=== PATIENT | female | born 1945 | race Caucasian/White ===

== ENCOUNTER 2021-11-09 12:35 | Emergency (ER) | payer MEDICARE, OTHER ==
[~2021-11-09] VITALS: Ht 167.6 cm; Wt 89.5 kg
[2021-11-09 13:04] VITALS: BP 155/80
[2021-11-09] MEDS ORDERED: LIDO:MAALOX 1:1 20 ML SINGLE DOSE. PO ONE (13:15)
--- NOTE | 2021-11-09 14:23 | PHYS DOC ---
Past History Past Surgical History: Hysterectomy, Knee Replacement General Adult EDM: Chief Complaint: COUGH HPI: HPI: Patient is a [age] year old [sex] who presents with [] Review of Systems: Review of Systems: Constitutional: Denies fever or chills Eyes: Denies change in visual acuity HENT: Denies nasal congestion or sore throat Respiratory: Denies cough or shortness of breath Cardiovascular: Denies chest pain or edema GI: Denies abdominal pain, nausea, vomiting, bloody stools or diarrhea : Denies dysuria Musculoskeletal: Denies back pain or joint pain Integument: Denies rash Neurologic: Denies headache, focal weakness or sensory changes Endocrine: Denies polyuria or polydipsia Lymphatic: Denies swollen glands Psychiatric: Denies depression or anxiety Current Medications: Current Meds: Current Medications Medications (Trade) Dose Ordered Sig/Bg Start Time Stop Time Status Last Admin Dose Admin Multi-Ingredient Mouthwash/Gargle (Gi Cocktail) 20 ml 1X ONCE 11/09/21 13:15 11/09/21 13:16 DC 11/09/21 13:20 20 ML Allergies: Allergies: Allergies Coded Allergies Type Severity Reaction Last Updated Verified No Known Drug Allergies 11/09/21 No Physical Exam: PE: Constitutional: Well developed, well nourished, no acute distress, non-toxic appearance. [] HENT: Normocephalic, atraumatic, bilateral external ears normal, oropharynx moist, no oral exudates, nose normal. [] Eyes: PERRLA, EOMI, conjunctiva normal, no discharge. [] Neck: Normal range of motion, no tenderness, supple, no stridor. [] Cardiovascular:Heart rate regular rhythm, no murmur [] Lungs & Thorax: Bilateral breath sounds clear to auscultation [] Abdomen: Bowel sounds normal, soft, no tenderness, no masses, no pulsatile masses. [] Skin: Warm, dry, no erythema, no rash. [] Back: No tenderness, no CVA tenderness. [] Extremities: No tenderness, no cyanosis, no clubbing, ROM intact, no edema. [] Neurologic: Alert and oriented X 3, normal motor function, normal sensory function, no focal deficits noted. [] Psychologic: Affect normal, judgement normal, mood normal. [] Current Patient Data: Vital Signs: Vital Signs Date Time Temp Pulse Resp B/P (MAP) Pulse Ox O2 Delivery O2 Flow Rate FiO2 11/09/21 13:04 102 18 155/80 (105) 99 EKG: EKG: [] Radiology/Procedures: Radiology/Procedures: [] Heart Score: Risk Factors: Risk Factors: DM, Current or recent (<one month) smoker, HTN, HLP, family history of CAD, obesity. Risk Scores: Score 0 - 3: 2.5% MACE over next 6 weeks - Discharge Home Score 4 - 6: 20.3% MACE over next 6 weeks - Admit for Clinical Observation Score 7 - 10: 72.7% MACE over next 6 weeks - Early Invasive Strategies Course & Med Decision Making: Course & Med Decision Making Pertinent Labs and Imaging studies reviewed. (See chart for details) [] Dragon Disclaimer: Dragon Disclaimer: This electronic medical record was generated, in whole or in part, using a voice recognition dictation system. Departure Departure: Impression: Primary Impression: Sensation of foreign body in esophagus Disposition: HOME / SELF CARE / HOMELESS Condition: STABLE Referrals: NON,STAFF (PCP) SOMMER ZARAGOZA DO Patient Instructions: Esophagitis Additional Instructions: It appears upon swallowing your pills that you cause some irritation of your esophagus. Trial cold or hot liquids including soups or ice creams to help with discomfort. May also use [id number] Maalox as needed. If pills or food appears to continually get stuck you may require follow-up closely with a GI specialist who would need to perform ascope to evaluate for possible esophageal strictures. MAYRA CHEN DO Nov 09, 2021 14:23
--- NOTE | 2021-11-10 11:43 | RAD ---
XR NECK SOFT TISSUE DATE: 11/09/2021 1:13 PM INDICATION: throat discomfort, possible retained calcium pill COMPARISON: None. FINDINGS: No prevertebral soft tissue swelling. No radiopaque foreign body. No evidence of acute fracture. There is no listhesis. Mild degenerative disc disease. IMPRESSION: No radiopaque foreign body Electronically signed by: Tom Landaverde MD (11/09/2021 2:31 PM) [id number]
--- NOTE | 2021-11-10 11:43 | RAD ---
XR CHEST 2V INDICATION: cough, concern for aspiration . COMPARISON STUDY: None. FINDINGS: Lungs: Normal lung volume. No pulmonary mass or consolidation. The tracheobronchial tree and hilar st ructures are normal. Pleura: No pleural effusion or pneumothorax. Heart and Mediastinum: The cardiomediastinal silhouette is normal. Tortuous atherosclerotic aorta. Bones: Degenerative changes of the spine. IMPRESSION: No consolidation. Electronically signed by: Tom Landaverde MD (11/09/2021 2:30 PM) [id number]
== END 2021-11-09 14:26 | disposition home or self-care (01) ==
LOC: ER 12:35
DX: R09.89 Other specified symptoms and signs involving the circulatory and respiratory systems (principal)
CPT/HCPCS: 70360; 71046; 99284